=== PATIENT | female | born 1965 | race Caucasian/White ===

== ENCOUNTER 2022-02-21 20:28 | Outpatient (CLI) | payer OTHER, SELFPAY ==
--- NOTE | 2022-03-21 19:33 | WPDSLEEPSTUD ---
Sleep Study Date of Study: 02/21/22 Ordering Provider: Saskia Frye, [employer]IVE [employer]KE [employer]JUSTER- Interpreting Physician: Joya Hernández MD Sleep Study Type: Split Polysomnogram Height: 1.63 m Weight: 101.151 kg Body Mass Index: 38.2 Neck Circumference (inches): 17 Reason for Sleep Study Hypersomnolence Sleep History Elizabeth Joe is a 56-year-old woman with excessive daytime sleepiness which started around 2018. She was diagnosed with sleep apnea in [facility] but was told it was not severe enough for her to start using CPAP. She never felt rested even after a full night of sleep. She states that her primary care did an EKG in the office, it had some abnormalities and she was sent for chemical stress test which also showed some abnormal findings. She saw a warehouse shipping clerk, had a catheterization with a blockage requiring 2 stents. She was still excessively sleepy. Her sleep is also interrupted by numbness in her extremities. She has difficulty focusing. In November 2021 she was hospitalized again with hypertension. She had a repeat catheterization however she did not require stents. She gives a history of pneumonia, early COPD/ emphysema and she is not a smoker. She has daily headaches. She short of breath with exertion. She wakes up during the night. She occasionally awakens from sleep feeling short of breath. She rarely wakes up with heartburn, belching or coughing. She takes omeprazole for acid reflux. She frequently snores and occasionally is loud enough for others to complain about it. She frequently has trouble sleeping with a cold. She occasionally wakes up gasping for breath at night. She occasionally has breathing problems at night observed by others. She occasionally sweats excessively at night. She frequently notices her heart pounding or beating irregularly at night she frequently falls asleep during the day, falls asleep involuntarily but rarely falls asleep while driving. She does not have loss of muscle tone with strong emotion. She frequently has problems during the day due to excessive sleepiness. 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 she she rarely feels paralyzed on waking or falling asleep. She does not have vivid dreamlike scenes on waking or falling asleep. She does not feel afraid to go to sleep. She rarely has nightmares. She rarely remembers her dreams. She does not have racing thoughts. She rarely feels sad or depressed. She rarely has anxiety. She frequently has muscular tension. She does not notice parts of her body jerking. She occasionally kicks at night. She frequently has crawling and aching feelings in her legs and leg pain during the night. She rarely has morning jaw pain. She does not grind her teeth during sleep. She frequently is bothered by pain during the day and frequently awakened by pain at night. She frequently wakes up feeling stiff in the morning with sore achy muscles and pain in the neck and spine. She has headaches, insomnia, memory problems and fatigue. She takes antacids regularly. Normal bedtime is variable. She does not have a fixed bedtime. Once she gets ready to go to sleep she falls asleep instantly. She typically wakes 3 times during the night. She stays awake between 5 and 10 minutes, long enough to go to the bathroom, or reposition due to pain or numbness. She wakes up at 4:30 a.m. on week days. She wakes up between 8 and 11 on weekends. She estimates getting between 3-6 hours of sleep at night. She takes naps in the afternoon or evening. A short nap is not refreshing. She is drowsy in the morning for 3 hours or longer. She feels feels better in the evening compared to other times of day. she rarely awakens feeling refreshed. She frequently has morning headaches. Habits: Never smoked tobacco. Caffeine, large amounts of caffeine throughout the da, 2 L carbonated beverage and 2 cups of coffee. Alcohol: none. no recreational drugs PMFSH
[2022-03-21 19:35] VITALS: BMI 38.2
== END 2022-02-22 06:30 | disposition home or self-care (01) ==
PROVIDERS: PCP Nurse Practitioner; Visit Provider Nurse Practitioner
DX: G47.33 Obstructive sleep apnea (adult) (pediatric) (principal)
CPT/HCPCS: 95811